=== PATIENT | female | born 1995 | race Caucasian/White ===

== ENCOUNTER → 2018-01-23 | Outpatient (CLI) | payer BC ==
[~2018-01-23] MED LIST: HYDR50CA47 PO; HYDR50CA48 PO; OMEP-125 PO; SERT-181 PO; SERT-184 PO
== END ==
LOC: LAB 09:45
PROVIDERS: ATTEND Obstetrics & Gynecology
DX: Z01.419 Encounter for gynecological examination (general) (routine) without abnormal findings (principal); Z11.3 Encounter for screening for infections with a predominantly sexual mode of transmission; R07.89 Other chest pain
CPT/HCPCS: 36415; 82040; 82247; 82310; 82374; 82435; 82565; 82947; 84075; 84132; 84155; 84295; 84443; 84450; 84460; 84520; 85027; 86592; 86703; 86803; 87340

== ENCOUNTER → 2018-03-06 | Outpatient (CLI) | payer BC ==
[~2018-03-06] MED LIST changes: +IBUP-56 PO; +METR-1 PO
== END ==
LOC: LAB 09:44
PROVIDERS: ATTEND Obstetrics & Gynecology
DX: N89.8 Other specified noninflammatory disorders of vagina (principal)
CPT/HCPCS: 87210

== ENCOUNTER → 2018-03-21 | Outpatient (CLI) | payer BC | LOC: LAB 11:09 | PROVIDERS: ATTEND Obstetrics & Gynecology | DX: Z20.2 Contact with and (suspected) exposure to infections with a predominantly sexual mode of transmission (principal) | CPT/HCPCS: 87491; 87591 ==

== ENCOUNTER → 2018-05-02 | Outpatient (CLI) | payer BC ==
[~2018-05-02] MED LIST changes: +SULF-198 PO
== END ==
LOC: LAB 10:20
PROVIDERS: ATTEND Emergency Medicine
DX: R10.9 Unspecified abdominal pain (principal); B96.20 Unspecified Escherichia coli [E. coli] as the cause of diseases classified elsewhere
CPT/HCPCS: 81001; 87077; 87088; 87186